=== PATIENT | male | born 1955 | race Caucasian/White ===

== ENCOUNTER 2018-11-24 12:18 | Observation (INO) ==
[~2018-11-24 12:18] MED LIST: LIDOCAINE W/ SODIUM BICARB 0.5 ML SYR SUBD ONE; Lactated Ringers 1,000 ML PRIMARY IV ONE; Nasal Sanitizer POPSWAB ampule 3 AMP (Nozin) PREOP DOSE ENOS SCH; ceFAZolin Inj 2gm (Premix) 2 GM/50 ML BAG IV ONE
[2018-11-24] MEDS ORDERED: Vancomycin Inj 1gm vial ONE ×2 (12:54→14:59)
[2018-11-24] MEDS ORDERED: Sodium Chloride 0.9% 250 ML ONE (12:55)
[2018-11-24] MEDS ORDERED: Lactated Ringers 1,000 ML PRIMARY IV ONE ×2 (12:55→16:10)
[2018-11-24] MEDS ORDERED: ceFAZolin Inj 2gm (Premix) 2 GM/50 ML BAG IV ONE (12:55)
[2018-11-24] MEDS ORDERED: LIDOCAINE W/ SODIUM BICARB 0.5 ML SYR ONE (12:55)
[2018-11-24 13:02] LABS: BILIRUBIN,URINE SMALL (NEG); CLARITY,URINE CLEAR (CLEAR); COLOR,URINE YELLOW (Y); GLUCOSE, URINE (UA) 500 mg/dL (NEG); OCCULT BLOOD,URINE NEGATIVE (NEG); PROTEIN,URINE NEGATIVE (NEG); UROBILINOGEN,URINE 0.2 EU/dL (0.2)
[2018-11-24 13:07] LABS: URINE SAMPLE TYPE CLEAN CATCH URINE
[2018-11-24 13:08] LABS: URINE SPECIFIC GRAVITY - MAN 1.031
[2018-11-24] MEDS ORDERED: BUPIVACAINE 0.25% W/ EPI - 10 ML VIAL ONE ×2 (14:58→15:14)
[2018-11-24] MEDS ORDERED: Sodium Chloride 0.9% vial 10 ML ONE (14:58)
[2018-11-24] MEDS ORDERED: Gentamicin Inj 40 MG/ML VIAL ONE (14:58)
[2018-11-24] MEDS ORDERED: BACITRACIN 50,000 UNIT VIAL IRRIG ONE ×2 (14:59→15:04)
[2018-11-24] MEDS ORDERED: BUPivacaine Inj 0.25% PF - 10ml vial ONE (15:03)
[2018-11-24] MEDS ORDERED: Sodium Chloride 0.9% vial 40 ML ONE (15:03)
[2018-11-24] MEDS ORDERED: BUPivacaine Liposome/PF (Exparel) Inj 20ml vial INFIL ONE (15:04)
[2018-11-24] MEDS ORDERED: PROPOFOL 10 MG/1 ML (200 MG/20 ML) VIAL IV ONE (15:05)
[2018-11-24] MEDS ORDERED: fentaNYL Inj 100 MCG/2 ML VIAL ONE ×3 (15:06→18:43)
[2018-11-24] MEDS ORDERED: LIDOCAINE MPF 2% - 5 ML (20 MG/1 ML) ONE (15:06)
[2018-11-24] MEDS ORDERED: LIDOCAINE HCL 2 % 10 ML JELLY URO-JECT TOPICAL ONE ×2 (15:12→16:41)
[2018-11-24] MEDS ORDERED: DEXAMETHASONE PF 10 MG/1 ML VIAL ONE (18:54)
[2018-11-24] MEDS ORDERED: ceFAZolin 1 GM VIAL ONE (19:29)
[2018-11-24] MEDS ORDERED: fentaNYL Inj 100 MCG/2 ML VIAL IVP PRN (19:52)
[2018-11-24] MEDS ORDERED: LIDOCAINE W/ SODIUM BICARB 0.5 ML SYR SUBD PRN (19:52)
[2018-11-24] MEDS ORDERED: HYDROmorphone 2 MG/1 ML IVP PRN (19:52)
--- NOTE | 2018-11-24 19:54 | CRNA.PROGR ---
Anesthesia Time - Procedure/Recovery Time Start Date: 11/24/18 - Block Time Start Date: 11/24/18 End Date: 11/24/18 PreOp Block : Time In: 15:13 PreOp Block : Time Out: 19:46 PreOp Block : Total Time: 273 - Total Anesthesia Time Total Anesthesia Time (minutes): 273 - Other Weight: 74.843 kg Height: 5 ft 4 in Body Mass Index (BMI): 28.3 Physical Status: P3 Anesthesia Type: General Anesthesia : ET
[2018-11-24] MEDS ORDERED: Lactated Ringers 1,000 ML PRIMARY IV SCH (20:00)
[2018-11-24] MEDS ORDERED: HYDROmorphone 2 MG/1 ML ONE (20:15)
--- NOTE | 2018-11-24 20:22 | GEN.OPNOTE ---
Operative Note Surgery Date: 11/24/18 Preoperative Diagnosis: 1. Acute worsening of chronic low back pain. 2. Left lower extremity radiculopathy. 3. Neurogenic claudication. 4. Multilevel lumbar degenerative disc disease most advanced at the L3-4 levels. 5. Multilevel lumbar spondylosis most advanced at L3-4, L4-5 and L5-S1 but overall moderate in degree at these levels. 6. Severe multilevel lumbar central canal stenosis moderately severe at L2-3, severe at L3-4 and L4-5. 7. Multilevel lumbar neural foraminal stenosis L3-4, L4-5 and L5-S1. 8. Bilateral hip pain left worse than right. Postoperative Diagnosis: 1. Acute worsening of chronic low back pain. 2. Left lower extremity radiculopathy. 3. Neurogenic claudication. 4. Multilevel lumbar degenerative disc disease most advanced at the L3-4 levels. 5. Multilevel lumbar spondylosis most advanced at L3-4, L4-5 and L5-S1 but overall moderate in degree at these levels. 6. Severe multilevel lumbar central canal stenosis moderately severe at L2-3, severe at L3-4 and L4-5. 7. Multilevel lumbar neural foraminal stenosis L3-4, L4-5 and L5-S1. 8. Bilateral hip pain left worse than right. Procedure: 1.) Partial L2 laminectomy with medial facetectomies and foraminotomies bilaterally. (CPT code: 32939). 2.) Complete L3 laminectomy with medial facetectomeis and foraminotomies bilaterally. (CPT code: 34269). 3.) Complete L4 laminectomy with medial facetectomie and foraminotomies b ilaterally. (CPT code: 39158). 4.) Partial L5 laminectomy with medial facetectomies and foraminotomies bilaterally. (CPT code: 16468). 5.) Use of intra-operative fluoroscopy for localization of correct surgical levels. 6.) Use of intra-operative neuromonitoring including EMG's and SSEP's. Surgeon: Osvaldo Borden MD Nematology Teacher: CAM Ramsey Anesthesia Provider: Delonte Holloway MD Anesthesia Type: General Estimated Blood Loss (mL): 200 Fluids: See anesthesia record Pathology: None Indications: Mr. Quinteros is a 63-year-old gentleman who I saw initially several months ago for acute low back pain that started after placing an air conditioner in a window. After review of his lumbar MRI I was able to see he has multilevel lumbar degenerative disc disease, and multilevel lumbar spondylosis and what appeared to be severe lumbar central canal stenosis at L3-4 and some degree of stenosis of the lumbar canal at L4-5, however this was just based on sagittal images as there were no axial images to review. Based on the sagittal images, there also appeared to be severe neuroforaminal stenosis at the L3-4 and L5 neuroforamen bilaterally. Although his acute back pain from his fall improved he continues to have low back pain and symptoms consistant with neurogenic claudication. We had discussed the option of surgical treatment including either a multilevel lumbar laminectomy or multilevel lumbar laminectomy and fusion and the advantages and drawbacks of each surgical procedure and he wished to proceed with the multilevel lumbar laminectomy. Findings: 1.) Severe central canal stenosis, L3-4 & L4-5. 2.) Severe bilateral lateral recess stenosis, L2-3, L3-4, L4-5 secondary to bony and ligamentous hypertrophy. 3.) Bilateral neuroforaminal stenosis. Complications: None Operative Summary: Mr. Quinteros was met in the preoperative area. His documented surgical history and physical in the chart was reviewed. I reviewed the procedure to be performed with the Mr. Quinteros and we were in agreement on the procedure and this matched what was written on the patient's consent form. Any questions that Mr. Quinteros had before being brought back to the operating room suite, were answered to his satisfaction. Mr. Quinteros was brought back to the operating room suite and put under general anesthesia and intubated by the anesthesia staff. He had a Jauregui catheter placed into his bladder. He was carefully rolled over onto the Jj surgical table with his arms gently positioned upwards with his shoulders abducted less than 90 degrees. His arms were well padded with foam padding on top of the padding of surgical arm boards. The region of his chest and axillae was checked bilaterally to make sure that there were no pressure points over the region of the brachial plexus. His nipples were checked to be below the chest pad of the Jj table with no pressure points. All bony prominences were well padded. His Jauregui catheter was checked to be free from kinks. His pneumatic compression hose was connected to the pneumaticcompression device. The C-arm fluoroscopy unit was used to help localize the skin incision for the approach to the intended surgical level. The intended skin incision was marked with a skin marker with several crosshatches. The patient was prepped and draped in the usual and standard fashion. He was given 2 gm of Ancef IV for perioperative antibiosis. He was given 10 mg of Decadron IV. A standard surgical time-out was performed, identifying the correct patient, the correct procedure, and correct equipment being available for the procedure. The intended skin incision was injected subcutaneously with 0.25% Marcaine with 1:200,000 epinephrine. The skin was incised with a 10 blade scalpel and bleeding points were controlled with bipolar cautery. Dissection was continued through the subcutaneous tissue down to the lumbar fascia. The lumbar fascia was incised along the borders of the spinous processes and subperiosteal dissection was performed down the spinous processes and out laterally over the lamina bilaterally. The inferior aspect of a lamina was identified. A [place] 4 was p laced underneath the level and the level was identified using lateral fluoroscopy. Continued subperiosteal dissection was performed down the spinous processes of L2, L3, L4, and L5 and out over the respective lamina bilaterally and out over the medial aspects of the L2-L3, L3-L4,L4-L5 facet joints bilaterally. Self-retaining retractor was applied with cerebellar and Gelpi retractors. The caudal aspect of the L2 spinous process and the L3 and L4 spinous processes and rostral aspect of the L5 spinous process were removed with a large [place] rongeur. The L2, L3, L4, and L5 lamina were thinned with the same instrument. The high speed [employer] electric drill with a matchstick bit as well as various sized Kerrison punches were used to perform a partial laminectomy of L2, partial laminectomy of L5, and complete laminectomies of L3 and L4 and medial facetectomies at L2-L3, L3-L4, and L4-L5 bilaterally and proximal foraminotomies of L2-L3, L3-L4, and L4-L5 bilaterally. Surgical findings included severe lumbar central canal stenosis, worst at the L3-L4 level and bilateral severe lateral recess stenosis at all levels, L2-L3, L3-L4, and L4-L5 bilaterally. This severe lateral recess stenosis was secondary to bony arthropathy and hypertrophy and ligamentous hypertrophy. Excellent decompression of the spinal canal, lateral recesses, neural foramen, and exiting and traversing nerve roots was assured both by visual inspection as well as by palpation with a [place] instrument in the canal, in the lateral recesses, and by passing the instrument around the nerve structures, passing the instrument above and below the exiting nerve roots as they exited out their neural foramen, and above and below the traversing nerve roots as they traversed medial to their pedicles. The surgical site was irrigated with hydrogen peroxide solution, which was allowed to sit for a few minutes. This surgical site was then pulse lavaged with 3 liters of bacitracin/vancomycin/gentamicin solution. The surgical site was then irrigated with bacitracin irrigation to remove all of the pulse lavage solution. Floseal hemostatic agent was placed in the lateral gutters and over all exposed dural elements. A piece of compressed Gelfoam was placed across the canal. A medium Hemovac drain was placed into the surgical site. The closure portion of the procedure was begun. The fascia was reapproximated with 1 Vicryl suture in an interrupted fashion. The surgical site was again cleansed with a little bit of remaining pulse lavage solution, which was then irrigated away with the bacitracin irrigation. The deep subcutaneous tissue and fascia were then reapproximated with #0 Vicryl suture in an interrupted fashion. The dermis andsuperficial subcutaneous tissues were then reapproximated with 3-0 Vicryl suture in an inverted, interrupted fashion. The [place] drape was pulled back from the skin edges and the final layer of closure was performed with surgical stainless steel matthew. The incision was cleansed with a bacitracin soaked sponge and dried with a sterile dry sponge. The incision was then dressed with a Covaderm dressing. The surgical drain was secured with suture. The drain site was then dressed. All surgical drapes were removed from the patient. He was carefully rolled over onto the PACU stretcher. He was awoken and extubated by the anesthesia staff. He was taken to the recovery room in stable condition. All surgical counts were reported as correct by the scrub and circulating personnel. A physician's assitant, Ms. Lnida Jon PA-C, assisted with the procedure, including the exposure and closure portions of the procedure. She also provided irrigation and suctioning throughout the procedure.
[2018-11-24] MEDS ORDERED: LABETALOL 20 MG/4 ML (5 MG/1 ML) SYRINGE ONE (20:30)
[2018-11-24] MEDS ORDERED: LABETALOL 20 MG/4 ML (5 MG/1 ML) SYRINGE IVP PRN (20:32)
--- NOTE | 2018-11-24 21:01 | NEURO.PROG ---
Subjective Post Op Day: 0 Pain Management: PO Jauregui Catheter: Yes Diet: Regular Ambulating: No Additional Details: Just arrived on surgical floor. Awake and alert. Minimal surgical pain. Good movement all extremities. PLAN: 1.) Continue post-operative antibiotics. 2.) Continue post-operative pain control. 3.) Advance diet. 4.) Start to mobilize in am. Objective : Data - Vital Signs Vital Signs and I&O: Vital Signs - Last Taken Temperature 97.6 F 11/24/18 19:46 Pulse Rate 97 11/24/18 19:46 Respiratory Rate 12 11/24/18 19:46 Blood Pressure 157/65 11/24/18 19:46 Pulse Ox 96 11/24/18 19:46 Intake and Output (24hr x 4 totals) 11/22/18 11/23/18 11/24/18 11/25/18 05:59 05:59 05:59 05:59 Intake Total 2600 / 2600 Output Total 390 / 390 Balance 2210 / 2210
[2018-11-24] MEDS ORDERED: Fleet Enema 133ml RECTAL PRN (21:21)
[2018-11-24] MEDS ORDERED: HYDROcodone-APAP 7.5 MG-325 MG TABLET PO PRN (21:21)
[2018-11-24] MEDS ORDERED: DOCUSATE 100 MG CAPSULE PO PRN (21:21)
[2018-11-24] MEDS ORDERED: HYDROcodone-APAP 5 MG -325 MG TABLET PO PRN (21:21)
[2018-11-24] MEDS ORDERED: HYDROcodone-APAP 10 MG-325 MG TABLET PO PRN (21:21)
[2018-11-24] MEDS ORDERED: glyBURIDE 5 MG TABLET PO SCH (21:21)
[2018-11-24] MEDS ORDERED: MAGNESIUM CITRATE 296 ML SOLUTION PO PRN (21:21)
[2018-11-24] MEDS ORDERED: MORPHINE SULFATE 2 MG/1 ML IVP PRN ×2 (21:21)
[2018-11-24] MEDS ORDERED: Prochlorperazine Edisylate Inj 10mg/2ml vial IVP PRN (21:21)
[2018-11-24] MEDS ORDERED: oxyCODONE/APAP 7.5/325 Tab 1 TAB TAB PO PRN (21:21)
[2018-11-24] MEDS ORDERED: oxyCODONE/APAP 10/325 Tab 1 EACH TAB PO PRN (21:21)
[2018-11-24] MEDS ORDERED: DIAZEPAM 5 MG TABLET PO PRN (21:21)
[2018-11-24] MEDS ORDERED: PROMETHAZINE 25 MG/1 ML VIAL IM PRN (21:21)
[2018-11-24] MEDS ORDERED: MAGNESIUM 400 MG/5 ML - 30 ML (MILK OF MAGNESIA) PO PRN (21:21)
[2018-11-24] MEDS ORDERED: ONDANSETRON 4 MG/2 ML VIAL IVP PRN (21:21)
[2018-11-24] MEDS ORDERED: DIAZEPAM 10 MG/2 ML (5 MG/1 ML) CARPUJECT IVP PRN (21:21)
[2018-11-24] MEDS ORDERED: Ondansetron ODT Tab 4 MG TAB PO PRN (21:21)
[2018-11-24] MEDS ORDERED: BISACODYL 5 MG TABLET PO PRN (21:21)
[2018-11-24] MEDS ORDERED: metFORMIN 500 MG TABLET PO SCH (21:45)
[2018-11-24] MEDS ORDERED: TACROLIMUS 0.5 MG PO SCH (22:06)
[2018-11-24] MEDS: TAMSULOSIN 0.4 MG CAPSULE PO SCH (22:20)
[2018-11-24] MEDS: MYCOPHENOLATE MOFETIL 500 MG PO SCH (22:22)
[2018-11-24] MEDS: OMEPRAZOLE 40 MG CAPSULE PO SCH (22:22)
[2018-11-24] MEDS: ALENDRONATE 70 MG TABLET PO SCH ×2 (22:25→22:30)
--- NOTE | 2018-11-24 22:29 | CONSULT ---
Consult Note - Consult Consult Date: 11/24/18 Reason for Consult: PostOp Consulation : Neuro Requesting Physician: Dr. Borden Primary Care Provider: NONE NONE - History of Present Illness History of Present Illness: This is a 63 years old male with medical history significant for history of diabetes, hypertension, history of renal transplant on immunosuppressant, history of chronic back pain from spinal stenosis who came into the hospital to have surgery and was done by Dr. Borden today. The hospitalist service were consulted for management of medical issues. Patient is denying complaint. No significant pain, shortness of breath, no headaches. Past Medical History Medical History: 1. Diabetes type II on oral hypoglycemic agent. 2. Hypertension. 3. Status post kidney transplant , was on dialysis prior to the transplant, last creatinine was 0.9 week ago. Currently on immunosuppressant. 4. 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 5. History of back pain. 6. History of retinopathy with previous laser, and cataract surgery and vitrectomy Surgical History: 1. History of kidney transplant. 2. History of below knee amputation on the left Past Social History: Does not smoke, rarely drinks no drugs. Lives in [place] Tobacco Use: Never Smoker Do you dip or chew tobacco: No In the Past 12 Months, Have Used or Abuse Any of the Following Substance: None Alcohol Use: None Review of Systems - Review of Systems All Systems: Reviewed & No Additional Complaints Except as Stated Medication / Allergies Home Medications: Home Medications Medication Instructions Recorded Confirmed Type alendronate 70 mg tablet 70 mg PO QWEEK 05/27/18 11/23/18 History aspirin 81 mg tablet,delayed 81 mg PO QDAY 05/27/18 11/23/18 History release cholecalciferol (vitamin D3) 2,000 2,000 unit PO QDAY 05/27/18 11/23/18 History unit capsule glyburide 5 mg tablet 5 mg PO BID 05/27/18 11/23/18 History mycophenolate mofetil 500 mg tablet 500 mg PO BID 05/27/18 11/23/18 History prednisone 5 mg tablet 5 mg PO QDAY 05/27/18 11/23/18 History hydrocodone 5 mg-acetaminophen 325 1 tab PO TID PRN #20 tab 07/22/18 11/23/18 Rx mg tablet oxycodone 5 mg tablet 10 mg PO Q4-6H PRN #60 tab 09/23/18 11/23/18 Rx Omeprazole 20 mg PO DAILY 10/25/18 11/23/18 History lisinopril 10 mg tablet 10 mg PO QDAY 11/18/18 11/23/18 History metformin 500 mg tablet 1,000 mg PO BID tab 11/18/18 11/23/18 History tacrolimus 0.5 mg capsule 0.5 mg PO QPM cap 11/18/18 11/23/18 History tacrolimus 1 mg capsule 1 mg PO QAM cap 11/18/18 11/23/18 History tamsulosin 0.4 mg capsule 0.4 mg PO QDAY 11/18/18 11/23/18 History Allergies/Adverse Reactions: Allergies Allergy/AdvReac Type Severity Reaction Status Date / Time No Known Allergies Allergy Verified 11/25/18 06:42 Exam - Vitals Vital Signs: Vital Signs Temperature 97.6 F Pulse Rate 93 Respiratory Rate 14 Blood Pressure 172/84 Pulse Ox 94 Oxygen Flow Rate 2lnc Height 5 ft 4 in Weight 165 lb - General General Appearance: No Acute Distress, Cooperative - Head Head Exam: Normal Inspection - Eye Eye Exam: POSITIVE: Normal Appearance - ENT ENT Exam: POSITIVE: Normal Exam - Neck Neck Exam: Normal Inspection - Respiratory Respiratory Exam: POSITIVE: Clear to Auscultation - Bilaterally - Cardiovascular Cardiovascular Exam: POSITIVE: RRR - GI/Abdominal GI/Abdominal Exam: POSITIVE: Normal Bowel Sounds, Non Tender, Non Distended, Soft, No Organomegaly - Rectal Rectal Exam: POSITIVE: Deferred - External Exam: POSITIVE: Deferred - Extremities Additional Extremities Exam Details: Below-knee amputation on the left. - Back Additional Back Exam Details: Dressing applied to the back, drain noted in place. He is wearing a brace. - Neurological Neurological Exam: POSITIVE: Alert, Reflexes Normal, CN II-XII Intact, No Facial Droop, Speech Intact / Clear - Psychiatric Psychiatric Exam: POSITIVE: Normal Affect Results - Labs CBC and BMP: 11/25/18 04:10 11/25/18 04:10 Assessment and Plan - Patient Problems (1) Chronic back pain Current Visit: Yes Status: Acute Comment: Status post laminectomy management per Dr. Borden. He did write for pain medications. Code(s): M54.9 - Dorsalgia, unspecified; G89.29 - Other chronic pain (2) History of renal transplant Current Visit: Yes Status: Acute Comment: Continue his immunosuppression treatment. Code(s): Z94.0 - Kidney transplant status (3) Diabetes Current Visit: Yes Status: Acute Comment: His solvent station attendant wants him to hold his diabetic medications. I think we'll hold off will see what's his blood sugar in the morning with his labs. Code(s): E11.9 - Type 2 diabetes mellitus without complications (4) History of hypertension Current Visit: Yes Status: Acute Comment: His solvent station attendant instructed him to hold the lisinopril I think we'll hold hit watch his blood pressure. We'll see what his numbers tomorrow and decide about giving him medications or not. He did receive already labetalol in the OR. Code(s): Z86.79 - Personal history of other diseases of the circulatory system
[2018-11-25] MEDS: ceFAZolin Inj 1 GM in Sodium Chloride 0.9% 100 ML IV SCH ×2 (03:00→14:05)
[2018-11-25 05:21] LABS: BASOPHILS # (AUTO) 0 10*3/UL; BASOPHILS % (AUTO) 0 % (0-1); EOSINOPHILS # (AUTO) 0 10*3/UL; EOSINOPHILS % (AUTO) 0 % (0-8); Hematocrit [HCT] 37.5 % (42.0-52.0); Hemoglobin [HGB] 12.2 g/dL (14.0-18.0); LYMPHOCYTES # (AUTO) 0.54 10*3/uL; MEAN CORPUSCULAR HGB CONC 32.5 g/dL (33-37); MEAN CORPUSCULAR VOLUME 89.1 FL (80-90); MONOCYTES # (AUTO) 0.79 10*3/UL (0.3-0.8); MONOCYTES % (AUTO) 7.9 % (5-15); NEUTROPHILS # (AUTO) 8.66 10*3/UL; NEUTROPHILS % (AUTO) 86.6 % (50-80); RED BLOOD COUNT 4.21 10^6/uL (4.70-6.10)
[2018-11-25 05:37] LABS: BLOOD UREA NITROGEN 18 mg/dL (7-22); BUN/CREATININE RATIO 25.71 (6-20)
[2018-11-25 06:04] LABS: PLATELET MORPHOLOGY COMMENT NORMAL MORPHOLOGY (NORM); RBC MORPHOLOGY COMMENT NORMAL MORPHOLOGY (NORM); WBC MORPHOLOGY COMMENT NORMAL MORPHOLOGY (NORM)
--- NOTE | 2018-11-25 06:58 | NEURO.PROG ---
Subjective Post Op Day: 1 Pain Management: PO Lowe Catheter: Yes Flatus: Yes Diet: Regular Additional Details: Mr Quinteros is awake and alert, moving all extremities. Lt dorsi and plantar flexion are strong. His incision is dry and intact. His hemovac drainage was minimal in 12 hours. After he has been up out of bed we will evaluate for discontinuing his drain. I appreciate Dr Pedersen's help with his renal status, diabetes and hypertension. Plan for today is to mobilize, discontinue lowe catheter after he has been up, and discontinue wound drain. Objective : Data - Labs CBC and BMP: 11/25/18 04:10 11/25/18 04:10 - Vital Signs Vital Signs and I&O: Vital Signs - Last Taken Temperature 98.1 F 11/25/18 03:40 Pulse Rate 89 11/25/18 03:40 Respiratory Rate 16 11/25/18 03:40 Blood Pressure 135/53 11/25/18 03:40 Pulse Ox 98 11/25/18 04:00 Intake and Output (24hr x 4 totals) 11/23/18 11/24/18 11/25/18 11/26/18 05:59 05:59 05:59 05:59 Intake Total 2911 / 2911 Output Total 530 / 530 Balance 2381 / 2381
[2018-11-25] MEDS ORDERED: PANTOPRAZOLE 40 MG TABLET PO SCH (07:00)
--- NOTE | 2018-11-25 07:25 | PDOC(PROG) ---
Date of Service: 11/25/18 Time of Service: 07:25 Interval History: Subjective Patient had some pain earlier and his back received some morphine, feels better now. He was sitting on the edge of the bed does not appear in distress. Objective : Data - Labs CBC and BMP: 11/25/18 04:10 11/25/18 04:10 Objective : Exam - General General Appearance: No Acute Distress, Cooperative - Head Head Exam: Normal Inspection - Eye Eye Exam: Normal Appearance - ENT ENT Exam: Normal Exam - Neck Neck Exam: Normal Inspection - Respiratory Respiratory Exam: Clear to Auscultation - Bilaterally - Cardiovascular Cardiovascular Exam: RRR - GI/Abdominal GI/Abdominal Exam: Normal Bowel Sounds, Non Tender, Non Distended, Soft, No Organomegaly - Rectal Rectal Exam: Deferred - External Exam: Deferred Exam: Deferred - Extremities Additional Extremities Exam Details: Below-knee amputation on the left. - Neurological Neurological Exam: Alert, Oriented x 3, CN II-XII Intact, No Facial Droop, Speech Intact / Clear, Moves All Extremities Equally - Psychiatric Psychiatric Exam: Normal Affect - Integumentary Integumentary Exam: Normal Color Assessment and Plan - Patient Problems (1) Chronic back pain Current Visit: Yes Status: Acute Comment: Status post surgery management per Dr. Borden. Continue same pain medications. he'll start physical therapy today. The plan also to DC the Jauregui at one point today and possibly the drain. Code(s): M54.9 - Dorsalgia, unspecified; G89.29 - Other chronic pain (2) History of renal transplant Current Visit: Yes Status: Acute Comment: Continue his immunosuppressant. Code(s): Z94.0 - Kidney transplant status (3) Diabetes Current Visit: Yes Status: Acute Comment: Blood sugar is elevated this morning. We'll restart his diabetic medications. We'll watch his blood sugar. Code(s): E11.9 - Type 2 diabetes mellitus without complications (4) History of hypertension Current Visit: Yes Status: Acute Comment: Continue holding the lisinopril. Code(s): Z86.79 - Personal history of other diseases of the circulatory system
--- NOTE | 2018-11-25 07:28 | PDOC(PROG) ---
General Note Progress Note: Post Anesthesia Note: No apparent anesthesia complications. No Nausea, vital signs stable.
[2018-11-25] MEDS ORDERED: TAMSULOSIN 0.4 MG CAPSULE PO SCH (09:00)
[2018-11-25] MEDS ORDERED: LISINOPRIL 10 MG TABLET PO SCH ×2 (09:00→21:00)
[2018-11-25] MEDS ORDERED: metFORMIN 500 MG TABLET PO SCH (09:00)
[2018-11-25] MEDS: TACROLIMUS 0.5 MG PO SCH (09:33)
[2018-11-25] MEDS: CHOLECALCIFEROL 1000 IU TABLET PO SCH (09:34)
[2018-11-25] MEDS: glyBURIDE 5 MG TABLET PO SCH ×2 (09:34→20:47)
[2018-11-25] MEDS: MYCOPHENOLATE MOFETIL 500 MG PO SCH ×2 (09:34→20:48)
[2018-11-25] MEDS: predniSONE 5 MG TABLET PO SCH (09:34)
[2018-11-25] MEDS: metFORMIN 500 MG TABLET PO SCH ×2 (09:35→20:48)
[2018-11-25] MEDS: oxyCODONE-ACETAMINOPHEN 5-325 TAB PO PRN ×2 (09:46→14:04)
[2018-11-25] MEDS ORDERED: ceFAZolin Inj 1 GM in Sodium Chloride 0.9% 100 ML IV SCH (13:15)
--- NOTE | 2018-11-25 16:03 | PT.PROG ---
Progress Note Progress Note: S. Patient stated that he is feeling alright this afternoon. O. Patient donned his prosthetic limb then ambulated to the stairwell where he ascended and descended 6 stairs with a cane then ambulated 300 feet around the nurses station with the front wheeled walker. He returned to his room where he was left at the edge of bed with alarm and call light. A. Patient tolerated stair training and ambulation well, he was unable to don his limb at first however after some time with leg elevated he was able to don the limb. Patient would continue to benefit from skilled therapy to increase stability and safety at this time. P. Continue POC.
[2018-11-25] MEDS ORDERED: TACROLIMUS 0.5 MG PO SCH ×3 (18:00→21:00)
[2018-11-25] MEDS: oxyCODONE IR Tab 5 MG TAB PO PRN ×2 (18:02→22:27)
[2018-11-25] MEDS: TAMSULOSIN 0.4 MG CAPSULE PO SCH (20:47)
[2018-11-25] MEDS: OMEPRAZOLE 40 MG CAPSULE PO SCH (20:47)
[2018-11-25] MEDS ORDERED: ACETAMINOPHEN 325 MG TABLET PO PRN (21:31)
[2018-11-26] MEDS: oxyCODONE IR Tab 5 MG TAB PO PRN ×2 (02:23→07:01)
[2018-11-26 07:03] VITALS: BP 114/59; RESP 20; TEMP 98.6; O2SAT 90
--- NOTE | 2018-11-26 07:04 | NEURO.PROG ---
Subjective Post Op Day: 2 Pain Management: PO Jauregui Catheter: No Diet: Regular Ambulating: Yes Additional Details: Rah feels well this morning and wants to go home. He is moving all extremities. His right leg has strong dorsi and plantar flexion. His incision is dry and intact. He mobilized well with physical therapy yesterday and he and his are comfortable with his ability to be up and around at home. He was given post op incision care instructions. He plans to follow up with Dr. Santana in [place]. Dr. Borden does not have a [facility] until January 06 at which time he will see Rah. In the meantime he can make an appointment to be seen in [place] if he needs something beyond his visits with Dr. Santana. From a neuro standpoint he is ready for discharge home per hospitalist. Objective : Data - Labs CBC and BMP: 11/25/18 04:10 11/25/18 04:10 - Vital Signs Vital Signs and I&O: Vital Signs - Last Taken Temperature 99.4 F 11/26/18 05:05 Pulse Rate 95 11/26/18 05:05 Respiratory Rate 922 H 11/26/18 05:05 Blood Pressure 126/55 11/26/18 05:05 Pulse Ox 96 11/26/18 05:05 Intake and Output (24hr x 4 totals) 11/24/18 11/25/18 11/26/18 11/27/18 05:59 05:59 05:59 05:59 Intake Total 2911 / 2911 1979 / 1979 Output Total 530 / 530 1425 / 1425 Balance 2381 / 2381 555 / 555
--- NOTE | 2018-11-26 08:09 | DCSUMMARY ---
Hospitalization Summary Admit Date: 11/24/2018 Discharge Date: 11/26/18 Hospital Course: Discharge diagnoses 1. Status post back surgery 2. History of diabetes on oral hypoglycemic agent 3.. History of hypertension 4. History of kidney transplant on immunosuppressant 5. History of for below-knee amputation 6. History of retinopathy Hospital course This is a 63 years old male with medical history significant for history of diabetes, hypertension, history of renal transplant on immunosuppressant, history of chronic back pain from spinal stenosis who came to the hospital to have surgery and was done by Dr. Borden. Please see Dr. Borden note for details of the surgery. The hospitalist was consulted for management of medical issues. Patient was seen postoperatively he denied significant pain his exam was remarkable for below-knee amputation. He had also a fistula for dialysis on the left arm. He Started physical therapy doing well. Had a transient episode of low-grade temperature that did not persist. He did have uncontrolled pain that night also. On the day of discharge he denied symptoms he feels well pain seemed to be controlled does not feel sick there was no fever. There is no cough no burning with urination. His exam was unremarkable apart from the below knee amputation. Wound was clean. He wanted to go home. We thought he could be discharged home and follow-up with his primary. We did notice that his blood sugar was uncontrolled we suggested that he follow-up with his primary and see if they will add additional medications to his list. Discharge instruction Diet diabetic Activity as started Medications Home Medications aspirin 81 mg tablet,delayed release 81 mg PO QDAY 05/27/18 [History Confirmed 11/23/18] cholecalciferol (vitamin D3) 2,000 unit capsule 2 capsful PO QDAY 05/27/18 [History Confirmed 11/25/18] glyburide 5 mg tablet 5 mg PO BID 05/27/18 [History Confirmed 11/23/18] mycophenolate mofetil 500 mg tablet 500 mg PO BID 05/27/18 [History Confirmed 11/23/18] prednisone 5 mg tablet 5 mg PO QDAY 05/27/18 [History Confirmed 11/23/18] hydrocodone 5 mg-acetaminophen 325 mg tablet 1 tab PO TID PRN #20 tab 07/22/18 [Rx Confirmed 11/23/18] Omeprazole 20 mg PO DAILY 10/25/18 [History Confirmed 11/23/18] lisinopril 10 mg tablet 10 mg PO QDAY 11/18/18 [History Confirmed 11/23/18] metformin 500 mg tablet 1,000 mg PO BID tab 11/18/18 [History Confirmed 11/23/18] tacrolimus 0.5 mg capsule 0.5 mg PO QPM cap 11/18/18 [History Confirmed 11/23/18] tacrolimus 1 mg capsule 1 mg PO QAM cap 11/18/18 [History Confirmed 11/23/18] tamsulosin 0.4 mg capsule 0.4 mg PO QDAY 11/18/18 [History Confirmed 11/23/18] oxyCODONE IR Tab [OxyIR Tab] 10 mg PO Q4-6H PRN #60 tab 11/26/18 [Rx] Follow-up with PCP in 1-2 weeks, with Dr. Borden as scheduled Condition at discharge stable for discharge Exam - Vitals Vital Signs: Vital Signs Temperature 98.6 F Temperature Source Oral Pulse Rate [Pulse Oximeter] 97 Pulse Rate 93 Respiratory Rate 20 Blood Pressure [Right Arm] 114/59 Blood Pressure 172/84 Pulse Ox 90 Oxygen Flow Rate 3 Oxygen Delivery Method Room Air Height 5 ft 4 in Weight 158 lb 12.8 oz - General General Appearance: No Acute Distress, Cooperative - Head Head Exam: Normal Inspection - Eye Eye Exam: POSITIVE: Normal Appearance - ENT ENT Exam: POSITIVE: Normal Exam - Neck Neck Exam: Normal Inspection - Respiratory Respiratory Exam: POSITIVE: Clear to Auscultation - Bilaterally - Cardiovascular Cardiovascular Exam: POSITIVE: RRR - GI/Abdominal GI/Abdominal Exam: POSITIVE: Normal Bowel Sounds, Non Tender, Non Distended, Soft, No Organomegaly - Rectal Rectal Exam: POSITIVE: Deferred - External Exam: POSITIVE: Deferred Exam: POSITIVE: Deferred - Extremities Additional Extremities Exam Details: Below left knee amputation. Fistula on the left arm - Back Additional Back Exam Details: Incision is clean and dry - Neurological Neurological Exam: POSITIVE: Alert, Oriented x 3, CN II-XII Intact, No Facial Droop, Speech Intact / Clear, Moves All Extremities Equally - Psychiatric Psychiatric Exam: POSITIVE: Normal Affect Patient Problems - Patient Problem List (1) Chronic back pain Status: Acute Code(s): M54.9 - Dorsalgia, unspecified; G89.29 - Other chronic pain Category: Medical (2) History of renal transplant Status: Acute Code(s): Z94.0 - Kidney transplant status Category: Surgical (3) Diabetes Status: Acute Code(s): E11.9 - Type 2 diabetes mellitus without complications Category: Medical (4) History of hypertension Status: Acute Code(s): Z86.79 - Personal history of other diseases of the circulatory system Category: Medical
[2018-11-26] MEDS: predniSONE 5 MG TABLET PO SCH (08:29)
[2018-11-26] MEDS: CHOLECALCIFEROL 1000 IU TABLET PO SCH (08:30)
[2018-11-26] MEDS: glyBURIDE 5 MG TABLET PO SCH (08:30)
[2018-11-26] MEDS: metFORMIN 500 MG TABLET PO SCH (08:31)
[2018-11-26] MEDS: MYCOPHENOLATE MOFETIL 500 MG PO SCH (08:34)
[2018-11-26] MEDS: TACROLIMUS 0.5 MG PO SCH (08:35)
--- NOTE | 2018-11-26 09:12 | PTI REPORT ---
Thank you for the referral of Rah Quinteros. He was seen on 11/25/18 for an inpatient evaluation status post lumbar laminectomy. SUBJECTIVE: The patient is a 63-year-old male. At the time of the evaluation the patient's was present. The patient states he is doing very well and is hoping to go home as soon as possible but was told that he will not be discharged until tomorrow and he is not sure why. The patient reports he lives in [place] and he only has two steps through his garage to get into his home. He has been using a single point cane; however, believes he would prefer a front wheeled walker but does have access to one at home so he does not want to get one here in the hospital. His past medical history includes status post left below the knee amputation; however, he has no difficulty donning and doffing his prosthetic limb. He was able to perform donning his prosthetic limb but did have some difficulty due to retaining fluid from the surgery. PAST MEDICAL HISTORY: Past medical history can be found in the patient's medical record. OBJECTIVE FINDINGS: General observations: The patient required min assist with donning/doffing as well as adjustment of his cybertech back brace following visual and verbal education on proper use. Incision was unable to be inspected due to the post op bandage being put in place. Bed mobility/Transfers: The patient was able to perform bed mobility and transfers following his prosthetic limb being placed on his left lower extremity with modified independence. Range of motion/Strength: Official range of motion and strengthening was not formally tested due to the patient being status post surgery. Ambulation: The patient was able to ambulate with front wheeled walker, cybertech back brace, gait belt, and contact guard assistance for well over 300 feet on smooth even surfaces with a front wheeled walker; however, he did not feel comfortable attempting stairs at this point due to fatigue and the recreation of pain. ASSESSMENT: Problem List: Patient is status post laminectomy Stairs Donning/[place] his prosthetic left lower extremity limb Physical Therapy Goals: To be met by discharge from inpatient: Patient will be able to ambulate up to 300 feet as well as ascend/descend three to four steps for safety to return to home. Patient will be able to perform return demonstration with surgical restrictions. Patient will be able to perform all bed mobility and transfers with modified independence. TREATMENT PLAN: Patient will be seen B.I.D during the week and one time per day over the weekend as an inpatient to address the above goals and objectives. INITIAL TREATMENT: Treatment today consisted of the initial evaluation followed by the patient being issued a front wheeled walker that they are borrowing while in the hospital. He was provided with a cybertech back brace and instructed on donning/doffing as well as adjustment. The patient was provided verbal education on no bending/lifting/twisting, specifically no lifting over 8 pounds or a gallon of milk. The patient ambulated 300 feet continuously with front wheeled walker, gait belt, and cybertech back brace and performed 5 minutes of ADL work at the sink. We will progress with gait training up and down stairs with either a walker or a cane either later this afternoon or tomorrow. OVI
--- NOTE | 2018-11-26 11:19 | PT.PROG ---
Progress Note Progress Note: patient was fitted for a front wheeled walker this morning. Patient has met all goals at this time.
== END 2018-11-26 09:25 | disposition home or self-care (01) ==
LOC: OR 12:18 → MED/SURG 12:18
PROVIDERS: ADMIT Neurological Surgery; ATTEND Neurological Surgery